=== PATIENT | female | born 1940 | race African-American/Black ===

== ENCOUNTER 2019-07-22 22:18 | Emergency (ER) | payer MEDICARE, OTHER ==
[2019-07-22] MEDS ORDERED: Ibuprofen 800 MG TAB ONE (23:11)
[2019-07-22] MEDS ORDERED: cloNIDine 0.1 MG TAB ONE (23:11)
== END 2019-07-22 23:55 | disposition home or self-care (01) ==
LOC: ERS 22:18
DX: M62.838 Other muscle spasm (principal); I10 Essential (primary) hypertension; E11.9 Type 2 diabetes mellitus without complications; F17.210 Nicotine dependence, cigarettes, uncomplicated
CPT/HCPCS: 99283

== ENCOUNTER 2021-11-16 09:39 | Inpatient (IN) | payer MEDICARE ==
[2021-11-16] MEDS ORDERED: Nitroglycerin 2% Ointment 1 INCH/1 GM Packet ONE (10:28)
[2021-11-16 10:33] LABS: #Eosinphils 0.1 thou/uL (0.0-0.7); #Monocytes 0.4 thou/uL (0.11-0.59); #Neutrophils 2.4 thou/uL (1.40-6.50); %Basophils 0.8 % (0.0-1.0); %Eosinophils 1.3 % (0.0-10.0); %Lymphocytes 40.9 % (21.0-51.0); %Monocytes 7.5 % (0.0-10.0); %Neutrophils 49.4 % (42.0-75.0); Hemoglobin 12.8 g/dL (12.0-16.0); Mean Corpuscular HGB CONC 32.2 g/dL (32.0-36.0); Mean Corpuscular Hemoglobin 30.1 pg (27.0-31.0); Mean Corpuscular Volume 93.5 fL (78.0-98.0); Platelet Count 155 thou/uL (130-400); RBC Distribution Width 12.1 % (11.5-14.5); Red Blood Cell (RBC) Count 4.23 mill/uL (4.20-5.40); White Blood Cell (WBC) Count 4.9 thou/uL (4.8-10.8)
[2021-11-16] MEDS ORDERED: Labetalol HCl 100 MG/20 ML VIAL ONE (10:38)
[2021-11-16 10:58] LABS: ALT (SGPT) Less than 7 U/L (8-55); AST (SGOT) 17 U/L (5-34); Albumin 4.2 g/dL (3.4-4.8); Alkaline Phosphatase 111 U/L (40-110); Anion Gap 12 mmol/L (10-20); BUN (Urea Nitrogen) 9 mg/dL (9.8-20.1); Bilirubin, Total 0.5 mg/dL (0.2-1.2); Calc. Creatinine Clearance 0 mL/min (70-130); Calcium 9.9 mg/dL (7.8-10.44); Carbon Dioxide 31 mmol/L (23-31); Chloride 102 mmol/L (98-107); Estimated GFR 64; Globulin 3.6 g/dL (2.4-3.5); Glucose 95 mg/dL (83-110); Potassium 3.6 mmol/L (3.5-5.1); Protein, Total 7.8 g/dL (5.8-8.1); Sodium 141 mmol/L (136-145)
[2021-11-16] MEDS ORDERED: niCARdipine 25 MG/10 ML VIAL ONE ×3 (11:29→19:44)
[2021-11-16] MEDS ORDERED: Aspirin Chewable 81 MG TAB ONE (11:34)
[2021-11-16 12:24] LABS: Bilirubin Negative (Negative); Blood, Urine Negative (Negative); Clarity Clear (Clear); Glucose, Urine (Dipstick) Normal (Negative); Ketone, Urine Negative (Negative); Leukocyte Negative Leu/uL (Negative); Nitrite Negative (Negative); Protein, Urine (Dipstick) Negative (Neg-Trace); Specific Gravity, Urine 1.006 (1.002-1.036); Urobilinogen Normal mg/dL (Less than 2)
[2021-11-16] MEDS ORDERED: Ondansetron ODT 4 MG TAB PO PRN (13:52)
[2021-11-16] MEDS ORDERED: Dextrose 5% in Water 1,000 ML IV PRN (13:58)
[2021-11-16] MEDS ORDERED: Dextrose 50% Abboject 50 ML SYRINGE SLOW IVP PRN (13:58)
[2021-11-16] MEDS ORDERED: HumaLOG 300 UNITS/3 ML VIAL SC PRN (13:58)
[2021-11-16] MEDS ORDERED: CCU Insulin Drip FS ONE (13:58)
[2021-11-16 14:09] LABS: Troponin I 0.018 ng/mL (< 0.028)
[2021-11-16] MEDS ORDERED: hydrALAZINE 25 MG TAB PO SCH (14:15)
[2021-11-16] MEDS ORDERED: NIFEdipine XL 60 MG TAB PO SCH (14:15)
[2021-11-16 14:22] LABS: Cardiac Risk 3.4 (Less than 4.5); Hemoglobin A1c 5.4 % (4.0-6.0)
[2021-11-16] MEDS ORDERED: hydrALAZINE 25 MG TAB ONE ×2 (14:22→17:10)
[2021-11-16] MEDS: hydrALAZINE 25 MG TAB PO SCH ×2 (17:14→22:15)
[2021-11-16 17:23] LABS: Troponin I 0.015 ng/mL (< 0.028)
[2021-11-16] MEDS: NIFEdipine XL 60 MG TAB PO SCH (22:15)
[2021-11-16] MEDS: Atorvastatin Calcium 40 MG TAB PO SCH (22:15)
[2021-11-16] MEDS: Famotidine 20 MG TAB PO SCH (22:15)
[2021-11-17] MEDS ORDERED: niCARdipine 25 MG in Sodium Chloride 0.9% 250 ML 250 ML IVPB SCH (02:15)
[2021-11-17 04:07] LABS: #Lymphocytes 1.3 thou/uL (1.20-3.40); #Monocytes 0.7 thou/uL (0.11-0.59); #Neutrophils 6.6 thou/uL (1.40-6.50); %Basophils 0.2 % (0.0-1.0); %Eosinophils 0.5 % (0.0-10.0); %Lymphocytes 15.4 % (21.0-51.0); %Monocytes 8.3 % (0.0-10.0); %Neutrophils 75.7 % (42.0-75.0); Hemoglobin 11.7 g/dL (12.0-16.0); Mean Corpuscular HGB CONC 32.6 g/dL (32.0-36.0); Mean Corpuscular Hemoglobin 30.5 pg (27.0-31.0); Mean Corpuscular Volume 93.6 fL (78.0-98.0); Mean Platelet Volume 8.9 fL (7.4-10.4); Platelet Count 154 thou/uL (130-400); RBC Distribution Width 12.3 % (11.5-14.5); Red Blood Cell (RBC) Count 3.83 mill/uL (4.20-5.40); White Blood Cell (WBC) Count 8.7 thou/uL (4.8-10.8)
[2021-11-17 04:23] LABS: ALT (SGPT) Less than 7 U/L (8-55); AST (SGOT) 16 U/L (5-34); Albumin 3.6 g/dL (3.4-4.8); Alkaline Phosphatase 91 U/L (40-110); Anion Gap 15 mmol/L (10-20); BUN (Urea Nitrogen) 11 mg/dL (9.8-20.1); Bilirubin, Total 0.4 mg/dL (0.2-1.2); Calc. Creatinine Clearance 51 mL/min (70-130); Calcium 9.3 mg/dL (7.8-10.44); Carbon Dioxide 25 mmol/L (23-31); Chloride 105 mmol/L (98-107); Estimated GFR 77; Globulin 3.3 g/dL (2.4-3.5); Glucose 136 mg/dL (83-110); Potassium 3.3 mmol/L (3.5-5.1); Protein, Total 6.9 g/dL (5.8-8.1); Sodium 142 mmol/L (136-145)
[2021-11-17] MEDS ORDERED: Insulin Glargine 30 UNITS/0.3 ML VIAL SC SCH (09:00)
[2021-11-17] MEDS: Aspirin Chewable 81 MG TAB PO SCH (09:07)
[2021-11-17] MEDS: Famotidine 20 MG TAB PO SCH ×2 (09:07→20:22)
[2021-11-17] MEDS: hydrALAZINE 25 MG TAB PO SCH ×4 (09:08→20:23)
[2021-11-17] MEDS: NIFEdipine XL 60 MG TAB PO SCH ×2 (09:08→20:23)
[2021-11-17] MEDS ORDERED: Electrolyte Replacement Protocol 1 EACH FS ONE (10:23)
[2021-11-17] MEDS ORDERED: Electrolyte Replacement Protocol FS PRN (10:45)
[2021-11-17] MEDS ORDERED: Potassium Chloride 20 MEQ TAB PO SCH (10:45)
[2021-11-17 11:08] LABS: Magnesium 1.7 mg/dL (1.6-2.6)
[2021-11-17] MEDS ORDERED: Magnesium 2 GM/50 ML(in water) 2 GM in Premix Bag 1 BAG IVPB SCH (14:00)
[2021-11-17] MEDS: Atorvastatin Calcium 40 MG TAB PO SCH (20:22)
[2021-11-18] MEDS ORDERED: OLANZapine 10 MG VIAL IM SCH (04:00)
[2021-11-18] MEDS ORDERED: Sterile Water 20 ML VIAL FS SCH (04:00)
[2021-11-18 05:22] LABS: #Eosinphils 0.1 thou/uL (0.0-0.7); #Lymphocytes 1.3 thou/uL (1.20-3.40); #Monocytes 0.8 thou/uL (0.11-0.59); #Neutrophils 5.3 thou/uL (1.40-6.50); %Lymphocytes 16.8 % (21.0-51.0); %Monocytes 10.9 % (0.0-10.0); %Neutrophils 71.2 % (42.0-75.0); Hemoglobin 11.1 g/dL (12.0-16.0); Mean Corpuscular HGB CONC 31.8 g/dL (32.0-36.0); Mean Corpuscular Hemoglobin 30.3 pg (27.0-31.0); Mean Corpuscular Volume 95.1 fL (78.0-98.0); Mean Platelet Volume 8.9 fL (7.4-10.4); Platelet Count 158 thou/uL (130-400); RBC Distribution Width 12.5 % (11.5-14.5); Red Blood Cell (RBC) Count 3.67 mill/uL (4.20-5.40); White Blood Cell (WBC) Count 7.5 thou/uL (4.8-10.8)
[2021-11-18 05:38] LABS: ALT (SGPT) Less than 7 U/L (8-55); AST (SGOT) 16 U/L (5-34); Albumin 3.4 g/dL (3.4-4.8); Alkaline Phosphatase 88 U/L (40-110); Anion Gap 13 mmol/L (10-20); BUN (Urea Nitrogen) 13 mg/dL (9.8-20.1); Bilirubin, Total 0.3 mg/dL (0.2-1.2); Calc. Creatinine Clearance 42 mL/min (70-130); Calcium 9.1 mg/dL (7.8-10.44); Carbon Dioxide 27 mmol/L (23-31); Chloride 104 mmol/L (98-107); Estimated GFR 58; Globulin 3.2 g/dL (2.4-3.5); Glucose 125 mg/dL (83-110); Potassium 3.9 mmol/L (3.5-5.1); Protein, Total 6.6 g/dL (5.8-8.1); Sodium 140 mmol/L (136-145)
[2021-11-18] MEDS: Aspirin Chewable 81 MG TAB PO SCH (09:30)
[2021-11-18] MEDS: hydrALAZINE 25 MG TAB PO SCH ×4 (09:30→20:28)
[2021-11-18] MEDS: NIFEdipine XL 60 MG TAB PO SCH (09:31)
[2021-11-18] MEDS ORDERED: Iopamidol-370 76% 500 ML 1 ML ONE (14:25)
[2021-11-18] MEDS: Atorvastatin Calcium 40 MG TAB PO SCH (20:27)
[2021-11-18] MEDS: Famotidine 20 MG TAB PO SCH (20:28)
[2021-11-19 05:21] LABS: #Eosinphils 0.1 thou/uL (0.0-0.7); #Lymphocytes 2.2 thou/uL (1.20-3.40); #Monocytes 0.6 thou/uL (0.11-0.59); #Neutrophils 3.4 thou/uL (1.40-6.50); %Basophils 0.1 % (0.0-1.0); %Lymphocytes 35.6 % (21.0-51.0); %Monocytes 8.7 % (0.0-10.0); %Neutrophils 54.6 % (42.0-75.0); Hemoglobin 11.5 g/dL (12.0-16.0); Mean Corpuscular HGB CONC 31.7 g/dL (32.0-36.0); Mean Corpuscular Hemoglobin 30.3 pg (27.0-31.0); Mean Corpuscular Volume 95.6 fL (78.0-98.0); Mean Platelet Volume 8.9 fL (7.4-10.4); Platelet Count 158 thou/uL (130-400); RBC Distribution Width 12.5 % (11.5-14.5); White Blood Cell (WBC) Count 6.3 thou/uL (4.8-10.8)
[2021-11-19 05:45] LABS: ALT (SGPT) Less than 7 U/L (8-55); AST (SGOT) 15 U/L (5-34); Albumin 3.4 g/dL (3.4-4.8); Alkaline Phosphatase 85 U/L (40-110); Anion Gap 13 mmol/L (10-20); BUN (Urea Nitrogen) 13 mg/dL (9.8-20.1); Bilirubin, Total 0.3 mg/dL (0.2-1.2); Calc. Creatinine Clearance 49 mL/min (70-130); Calcium 9.3 mg/dL (7.8-10.44); Carbon Dioxide 27 mmol/L (23-31); Chloride 104 mmol/L (98-107); Estimated GFR 69; Globulin 3.2 g/dL (2.4-3.5); Glucose 94 mg/dL (83-110); Potassium 3.8 mmol/L (3.5-5.1); Protein, Total 6.6 g/dL (5.8-8.1); Sodium 140 mmol/L (136-145)
[2021-11-19 08:56] LABS: Magnesium 1.9 mg/dL (1.6-2.6)
[2021-11-19] MEDS: NIFEdipine XL 60 MG TAB PO SCH (09:34)
[2021-11-19] MEDS: hydrALAZINE 25 MG TAB PO SCH ×4 (09:34→20:37)
[2021-11-19] MEDS: Aspirin Chewable 81 MG TAB PO SCH (09:34)
[2021-11-19] MEDS ORDERED: Magnesium 2 GM/50 ML(in water) 2 GM in Premix Bag 1 BAG IVPB SCH (11:00)
[2021-11-19] MEDS: Atorvastatin Calcium 40 MG TAB PO SCH (20:37)
[2021-11-19] MEDS: Famotidine 20 MG TAB PO SCH (20:37)
[2021-11-20 06:02] LABS: Magnesium 2.2 mg/dL (1.6-2.6)
[2021-11-20 08:55] VITALS: BMI 23.2
[2021-11-20] MEDS: Aspirin Chewable 81 MG TAB PO SCH (08:58)
[2021-11-20] MEDS: NIFEdipine XL 60 MG TAB PO SCH (08:58)
[2021-11-20] MEDS: hydrALAZINE 25 MG TAB PO SCH ×4 (08:59→21:00)
[2021-11-20] MEDS: Senokot S 8.6-50 MG TAB PO PRN (21:00)
[2021-11-20] MEDS: Famotidine 20 MG TAB PO SCH (21:00)
[2021-11-20] MEDS: Atorvastatin Calcium 40 MG TAB PO SCH (21:00)
[2021-11-21] MEDS: NIFEdipine XL 60 MG TAB PO SCH (09:20)
[2021-11-21] MEDS: Aspirin Chewable 81 MG TAB PO SCH (09:20)
[2021-11-21] MEDS: hydrALAZINE 25 MG TAB PO SCH ×4 (09:20→20:51)
[2021-11-21] MEDS: Famotidine 20 MG TAB PO SCH (20:50)
[2021-11-21] MEDS: Atorvastatin Calcium 40 MG TAB PO SCH (20:50)
[2021-11-22] MEDS: Aspirin Chewable 81 MG TAB PO SCH (08:22)
[2021-11-22] MEDS: NIFEdipine XL 60 MG TAB PO SCH (08:22)
[2021-11-22] MEDS: hydrALAZINE 25 MG TAB PO SCH ×4 (08:22→20:40)
[2021-11-22] MEDS: Acetaminophen 325 MG TAB PO PRN (20:39)
[2021-11-22] MEDS: Famotidine 20 MG TAB PO SCH (20:40)
[2021-11-22] MEDS: Atorvastatin Calcium 40 MG TAB PO SCH (20:40)
[2021-11-23] MEDS ORDERED: traMADol HCl 50 MG TAB PO SCH (06:30)
[2021-11-23] MEDS: Aspirin Chewable 81 MG TAB PO SCH (09:15)
[2021-11-23] MEDS: NIFEdipine XL 60 MG TAB PO SCH (09:15)
[2021-11-23] MEDS: hydrALAZINE 25 MG TAB PO SCH ×4 (09:15→20:40)
[2021-11-23] MEDS: Famotidine 20 MG TAB PO SCH (20:39)
[2021-11-23] MEDS: Atorvastatin Calcium 40 MG TAB PO SCH (20:39)
[2021-11-23] MEDS: Acetaminophen 325 MG TAB PO PRN (20:39)
[2021-11-24] MEDS: NIFEdipine XL 60 MG TAB PO SCH (08:29)
[2021-11-24] MEDS: hydrALAZINE 25 MG TAB PO SCH ×4 (08:29→20:58)
[2021-11-24] MEDS: Aspirin Chewable 81 MG TAB PO SCH (08:29)
[2021-11-24] MEDS: Atorvastatin Calcium 40 MG TAB PO SCH (20:58)
[2021-11-24] MEDS: Famotidine 20 MG TAB PO SCH (20:58)
[2021-11-25] MEDS: Aspirin Chewable 81 MG TAB PO SCH (09:41)
[2021-11-25] MEDS: hydrALAZINE 25 MG TAB PO SCH ×4 (09:42→21:08)
[2021-11-25] MEDS: Lisinopril 5 MG TAB PO SCH (09:42)
[2021-11-25] MEDS: NIFEdipine XL 60 MG TAB PO SCH (09:42)
[2021-11-25] MEDS: Famotidine 20 MG TAB PO SCH (21:08)
[2021-11-25] MEDS: Atorvastatin Calcium 40 MG TAB PO SCH (21:09)
[2021-11-26 05:58] LABS: Anion Gap 14 mmol/L (10-20); BUN (Urea Nitrogen) 21 mg/dL (9.8-20.1); Calc. Creatinine Clearance 43 mL/min (70-130); Calcium 9.9 mg/dL (7.8-10.44); Carbon Dioxide 28 mmol/L (23-31); Chloride 100 mmol/L (98-107); Estimated GFR 60; Glucose 111 mg/dL (83-110); Sodium 138 mmol/L (136-145)
[2021-11-26] MEDS: NIFEdipine XL 60 MG TAB PO SCH (09:33)
[2021-11-26] MEDS: Aspirin Chewable 81 MG TAB PO SCH (09:33)
[2021-11-26] MEDS: Acetaminophen 325 MG TAB PO PRN (09:33)
[2021-11-26] MEDS: hydrALAZINE 25 MG TAB PO SCH ×4 (09:33→21:56)
[2021-11-26] MEDS: Lisinopril 5 MG TAB PO SCH (09:33)
[2021-11-26] MEDS: traMADol HCl 50 MG TAB PO PRN ×2 (14:20→21:57)
[2021-11-26] MEDS: Senokot S 8.6-50 MG TAB PO PRN (14:28)
[2021-11-26] MEDS: Famotidine 20 MG TAB PO SCH (21:56)
[2021-11-26] MEDS: Atorvastatin Calcium 40 MG TAB PO SCH (21:57)
[2021-11-27 06:25] LABS: Anion Gap 15 mmol/L (10-20); BUN (Urea Nitrogen) 24 mg/dL (9.8-20.1); Calc. Creatinine Clearance 40 mL/min (70-130); Calcium 10.1 mg/dL (7.8-10.44); Carbon Dioxide 29 mmol/L (23-31); Chloride 98 mmol/L (98-107); Estimated GFR 55; Glucose 116 mg/dL (83-110); Magnesium 1.8 mg/dL (1.6-2.6); Potassium 3.8 mmol/L (3.5-5.1); Sodium 138 mmol/L (136-145)
[2021-11-27] MEDS ORDERED: Magnesium 2 GM/50 ML(in water) 2 GM in Premix Bag 1 BAG IVPB SCH (08:00)
[2021-11-27] MEDS: NIFEdipine XL 60 MG TAB PO SCH (10:16)
[2021-11-27] MEDS: Aspirin Chewable 81 MG TAB PO SCH (10:17)
[2021-11-27] MEDS: hydrALAZINE 25 MG TAB PO SCH ×4 (10:17→20:47)
[2021-11-27] MEDS: Lisinopril 5 MG TAB PO SCH ×2 (10:17→10:23)
[2021-11-27] MEDS: Lisinopril 10 MG TAB PO SCH ×2 (10:18→10:22)
[2021-11-27] MEDS: traMADol HCl 50 MG TAB PO PRN (15:47)
[2021-11-27] MEDS: Famotidine 20 MG TAB PO SCH (20:47)
[2021-11-27] MEDS: Atorvastatin Calcium 40 MG TAB PO SCH (20:48)
[2021-11-28 09:50] LABS: #Lymphocytes 1.2 thou/uL (1.20-3.40); #Monocytes 1.1 thou/uL (0.11-0.59); #Neutrophils 6.7 thou/uL (1.40-6.50); %Basophils 0.3 % (0.0-1.0); %Eosinophils 0.4 % (0.0-10.0); %Lymphocytes 12.9 % (21.0-51.0); %Neutrophils 74.4 % (42.0-75.0); Hemoglobin 11.4 g/dL (12.0-16.0); Mean Corpuscular HGB CONC 31.4 g/dL (32.0-36.0); Mean Corpuscular Hemoglobin 29.7 pg (27.0-31.0); Mean Corpuscular Volume 94.5 fL (78.0-98.0); Mean Platelet Volume 8.2 fL (7.4-10.4); Platelet Count 210 thou/uL (130-400); RBC Distribution Width 12.2 % (11.5-14.5); Red Blood Cell (RBC) Count 3.85 mill/uL (4.20-5.40); White Blood Cell (WBC) Count 9.1 thou/uL (4.8-10.8)
[2021-11-28 10:10] LABS: ALT (SGPT) 14 U/L (8-55); AST (SGOT) 19 U/L (5-34); Albumin 3.7 g/dL (3.4-4.8); Alkaline Phosphatase 99 U/L (40-110); Anion Gap 15 mmol/L (10-20); BUN (Urea Nitrogen) 17 mg/dL (9.8-20.1); Bilirubin, Total 0.6 mg/dL (0.2-1.2); Calc. Creatinine Clearance 43 mL/min (70-130); Calcium 10.3 mg/dL (7.8-10.44); Carbon Dioxide 29 mmol/L (23-31); Chloride 100 mmol/L (98-107); Estimated GFR 60; Glucose 103 mg/dL (83-110); Protein, Total 7.7 g/dL (5.8-8.1); Sodium 140 mmol/L (136-145)
[2021-11-28] MEDS ORDERED: hydrALAZINE 20 MG/ML VIAL SLOW IVP PRN (10:31)
[2021-11-28] MEDS: hydrALAZINE 25 MG TAB PO SCH ×5 (10:47→22:06)
[2021-11-28] MEDS: Aspirin Chewable 81 MG TAB PO SCH (10:59)
[2021-11-28] MEDS: Lisinopril 20 MG TAB PO SCH (10:59)
[2021-11-28] MEDS: Acetaminophen 325 MG TAB PO PRN (11:00)
[2021-11-28] MEDS: NIFEdipine XL 60 MG TAB PO SCH (11:00)
[2021-11-28] MEDS ORDERED: Iopamidol-370 76% 500 ML 1 ML ONE (11:36)
[2021-11-28] MEDS: Sodium Chloride 0.9% 1,000 ML IV SCH (15:34)
[2021-11-28 17:45] LABS: Bacteria/HPF None Seen HPF (None Seen); Bilirubin Negative (Negative); Blood, Urine Negative (Negative); Clarity Clear (Clear); Glucose, Urine (Dipstick) Normal (Negative); Ketone, Urine Negative (Negative); Leukocyte Negative Leu/uL (Negative); Nitrite Negative (Negative); Protein, Urine (Dipstick) Negative (Neg-Trace); RBC/HPF 0-3 HPF (0-3); Specific Gravity, Urine 1.046 (1.002-1.036); Squamous Epithelial None Seen HPF (0-3); Urobilinogen Normal mg/dL (Less than 2); WBC/HPF 0-3 HPF (0-3)
[2021-11-28 17:46] LABS: Urine Culture Reflex No No
[2021-11-28] MEDS ORDERED: Ondansetron PF 4 MG/2 ML Vial IVP PRN (21:00)
[2021-11-28] MEDS: Atorvastatin Calcium 40 MG TAB PO SCH (22:06)
[2021-11-28] MEDS: Famotidine 20 MG TAB PO SCH (22:06)
[2021-11-29] MEDS: hydrALAZINE 25 MG TAB PO SCH ×4 (11:43→21:05)
[2021-11-29] MEDS: Aspirin Chewable 81 MG TAB PO SCH (11:43)
[2021-11-29] MEDS: Lisinopril 20 MG TAB PO SCH (11:44)
[2021-11-29] MEDS: NIFEdipine XL 60 MG TAB PO SCH (11:45)
[2021-11-29] MEDS: Sodium Chloride 0.9% 1,000 ML IV SCH (11:58)
[2021-11-29] MEDS: Famotidine 20 MG TAB PO SCH (21:05)
[2021-11-29] MEDS: Atorvastatin Calcium 40 MG TAB PO SCH (21:05)
[2021-11-30] MEDS: Sodium Chloride 0.9% 1,000 ML IV SCH ×2 (01:08→16:37)
[2021-11-30] MEDS: NIFEdipine XL 60 MG TAB PO SCH (11:18)
[2021-11-30] MEDS: Lisinopril 20 MG TAB PO SCH (11:18)
[2021-11-30] MEDS: hydrALAZINE 25 MG TAB PO SCH ×2 (11:18→13:39)
[2021-11-30] MEDS: Aspirin Chewable 81 MG TAB PO SCH (11:18)
[2021-11-30 12:02] VITALS: TEMP 98.2
[2021-11-30 15:46] VITALS: BP 155/59
== END 2021-11-30 17:00 | DRG 64 ==
LOC: ERS 09:39 → ERHOLD 13:13 → CCU 20:27 → NEURO 11-17 10:06
PROVIDERS: ADMIT Family Medicine; ATTEND Family Medicine
DX: I63.81 Other cerebral infarction due to occlusion or stenosis of small artery (principal); G93.41 Metabolic encephalopathy; I16.1 Hypertensive emergency; F03.91 Unspecified dementia, unspecified severity, with behavioral disturbance; I67.4 Hypertensive encephalopathy; G81.91 Hemiplegia, unspecified affecting right dominant side; Z20.822 Contact with and (suspected) exposure to COVID-19; R29.703 NIHSS score 3; I10 Essential (primary) hypertension; F17.210 Nicotine dependence, cigarettes, uncomplicated; E78.00 Pure hypercholesterolemia, unspecified; M19.90 Unspecified osteoarthritis, unspecified site; R73.03 Prediabetes; R47.1 Dysarthria and anarthria; Z82.49 Family history of ischemic heart disease and other diseases of the circulatory system; Z91.83 Wandering in diseases classified elsewhere; Z90.710 Acquired absence of both cervix and uterus; Z83.3 Family history of diabetes mellitus; Z91.19 Patient's noncompliance with other medical treatment and regimen; Z91.14 Patient's other noncompliance with medication regimen
CPT/HCPCS: 36415; 36416; 70450; 70496; 70498; 70551; 71045; 74230; 80048; 80053; 80061; 81001; 81003; 83036; 83735; 84484; 85025; 93005; 93306; 93880; 95816; 95819; 95957; 96365; 96366; 96375; J2405; J3475; J7050; Q9967; U0003; U0005

== ENCOUNTER 2021-12-07 13:03 | Outpatient (CLI) | payer MEDICARE | END 2021-12-07 13:04 | disposition home or self-care (01) | LOC: RAD 13:03 | PROVIDERS: ATTEND Physical Medicine & Rehabilitation | DX: M25.551 Pain in right hip (principal); M16.11 Unilateral primary osteoarthritis, right hip ==

== ENCOUNTER 2021-12-14 14:05 | Outpatient (CLI) | payer SELFPAY | END 2021-12-14 14:06 | disposition home or self-care (01) | LOC: CT 14:05 | PROVIDERS: ATTEND Internal Medicine | DX: R29.810 Facial weakness (principal); I63.9 Cerebral infarction, unspecified | CPT/HCPCS: 70450 ==

== ENCOUNTER 2022-01-20 01:08 | Emergency (ER) | payer MEDICARE | END 2022-01-20 03:13 | LOC: ERS 01:08 | DX: S00.83XA Contusion of other part of head, initial encounter (principal); I10 Essential (primary) hypertension; E11.9 Type 2 diabetes mellitus without complications; F17.210 Nicotine dependence, cigarettes, uncomplicated; W01.198A Fall on same level from slipping, tripping and stumbling with subsequent striking against other object, initial encounter; Y93.01 Activity, walking, marching and hiking; Y92.129 Unspecified place in nursing home as the place of occurrence of the external cause; Z79.82 Long term (current) use of aspirin; Z79.899 Other long term (current) drug therapy | CPT/HCPCS: 70450; 72125 ==

== ENCOUNTER 2022-05-01 17:49 | Emergency (ER) | payer MEDICARE ==
[2022-05-01 19:09] LABS: #Eosinphils 0.2 thou/uL (0.0-0.7); #Monocytes 0.6 thou/uL (0.11-0.59); #Neutrophils 3.3 thou/uL (1.40-6.50); %Basophils 0.1 % (0.0-1.0); %Eosinophils 2.6 % (0.0-10.0); %Lymphocytes 32.6 % (21.0-51.0); %Monocytes 10.5 % (0.0-10.0); %Neutrophils 54.3 % (42.0-75.0); Hemoglobin 8.9 g/dL (12.0-16.0); Mean Corpuscular HGB CONC 31.8 g/dL (32.0-36.0); Mean Corpuscular Hemoglobin 28.9 pg (27.0-31.0); Mean Corpuscular Volume 90.9 fl (78.0-98.0); Platelet Count 229 10x3/uL (130-400); RBC Distribution Width 16.9 % (11.5-14.5); Red Blood Cell (RBC) Count 3.09 mill/uL (4.20-5.40)
[2022-05-01 19:24] LABS: ALT (SGPT) 15 U/L (8-55); AST (SGOT) 28 U/L (5-34); Albumin 3.5 g/dL (3.4-4.8); Alkaline Phosphatase 110 U/L (40-110); Anion Gap 15 mmol/L (10-20); BUN (Urea Nitrogen) 10 mg/dL (9.8-20.1); Bilirubin, Total 0.3 mg/dL (0.2-1.2); Calc. Creatinine Clearance 0 mL/min (70-130); Calcium 9.3 mg/dL (7.8-10.44); Carbon Dioxide 28 mmol/L (23-31); Chloride 101 mmol/L (98-107); Estimated GFR 76; Globulin 3.8 g/dL (2.4-3.5); Glucose 102 mg/dL (83-110); Potassium 3.4 mmol/L (3.5-5.1); Protein, Total 7.3 g/dL (5.8-8.1); Sodium 141 mmol/L (136-145)
== END 2022-05-01 21:08 | disposition left against medical advice (07) ==
LOC: ERS 17:49
DX: Z53.21 Procedure and treatment not carried out due to patient leaving prior to being seen by health care provider (principal)
CPT/HCPCS: 36415; 80053; 85025

== ENCOUNTER 2022-05-02 10:26 | Outpatient (CLI) | payer MEDICARE | END 2022-05-02 10:27 | disposition home or self-care (01) | LOC: BICRAD 10:26 | PROVIDERS: ATTEND Family Medicine | DX: L89.223 Pressure ulcer of left hip, stage 3 (principal) | CPT/HCPCS: 87070; 87205 ==

== ENCOUNTER 2024-12-30 15:25 | Inpatient (IN) | payer MEDICARE ==
[~2024-12-30 15:25] MED LIST: Iopamidol-370 76% 500 ML MDV (1 ML CHARGE) ONE
[2024-12-30 17:01] LABS: #Basophils 0.03 10x3/uL (0.0-0.2); #Eosinophils 0.06 10x3/uL (0.0-0.7); #Monocytes 0.94 10x3/uL (0.11-0.59); #Neutrophils 5.91 10x3/uL (1.40-6.50); %Basophils 0.3 % (0.0-1.0); %Eosinophils 0.6 % (0.0-10.0); %Lymphocytes 24.6 % (21.0-51.0); %Monocytes 10.2 % (0.0-10.0); %Neutrophils 63.9 % (42.0-75.0); Hematocrit 33.6 % (36.0-47.0); Hemoglobin 10.4 g/dL (12.0-16.0); Mean Corpuscular Hemoglobin 27.7 pg (27.0-31.0); Mean Corpuscular Volume 89.6 fL (78.0-98.0); Platelet Count 191 10x3/uL (130-400); Red Blood Cell (RBC) Count 3.75 mill/uL (4.20-5.40); White Blood Cell (WBC) Count 9.26 10x3/uL (4.8-10.8)
[2024-12-30 17:20] LABS: ALT (SGPT) Less than 7 U/L (Less than 34); AST (SGOT) 19 U/L (11-34); Albumin 2.9 g/dL (3.1-4.5); Alkaline Phosphatase 96 U/L (40-110); Anion Gap 14 mmol/L (10-20); BUN (Urea Nitrogen) 13 mg/dL (9.8-20.1); Bilirubin, Total 0.3 mg/dL (0.3-1.2); Calc. Creatinine Clearance 0 mL/min (70-130); Calcium 9.1 mg/dL (7.8-10.44); Carbon Dioxide 26 mmol/L (23-31); Chloride 106 mmol/L (98-107); Globulin 3.7 g/dL (2.4-3.5); Glucose 139 mg/dL (83-110); Potassium 4.1 mmol/L (3.5-5.1); Sodium 142 mmol/L (136-145)
[2024-12-30] MEDS ORDERED: hydrALAZINE 20 MG/ML VIAL ONE (18:31)
[2024-12-30] MEDS ORDERED: Aspirin Chewable 81 MG TAB ONE (20:26)
[2024-12-30] MEDS ORDERED: Lisinopril 20 MG TAB ONE (20:26)
[2024-12-30] MEDS: NIFEdipine XL 60 MG ER.TAB PO SCH (20:57)
[2024-12-30] MEDS ORDERED: Acetaminophen 325 MG TAB PO PRN ×2 (21:15→23:13)
[2024-12-30] MEDS ORDERED: Ondansetron PF 4 MG/2 ML Vial IVP PRN ×2 (21:15→23:13)
[2024-12-30] MEDS ORDERED: niCARdipine 25 MG/10 ML SDV ONE (21:58)
[2024-12-30] MEDS ORDERED: Calcium Carbonate 500 MG ChewTAB PO PRN (23:13)
[2024-12-30] MEDS ORDERED: niCARdipine 25 MG in Sodium Chloride 0.9% 250 ML 250 ML IVPB SCH (23:30)
[2024-12-31 02:40] VITALS: BMI 24.5
[2024-12-31 05:26] LABS: #Basophils 0.03 10x3/uL (0.0-0.2); #Eosinophils 0.05 10x3/uL (0.0-0.7); #Monocytes 1.14 10x3/uL (0.11-0.59); #Neutrophils 7.84 10x3/uL (1.40-6.50); %Basophils 0.3 % (0.0-1.0); %Eosinophils 0.5 % (0.0-10.0); %Lymphocytes 17.3 % (21.0-51.0); %Monocytes 10.4 % (0.0-10.0); %Neutrophils 71.1 % (42.0-75.0); Hematocrit 37.4 % (36.0-47.0); Hemoglobin 11.5 g/dL (12.0-16.0); Mean Corpuscular Hemoglobin 27.3 pg (27.0-31.0); Mean Corpuscular Volume 88.8 fL (78.0-98.0); Platelet Count 198 10x3/uL (130-400); Red Blood Cell (RBC) Count 4.21 mill/uL (4.20-5.40); White Blood Cell (WBC) Count 11.01 10x3/uL (4.8-10.8)
[2024-12-31 05:48] LABS: ALT (SGPT) Less than 7 U/L (Less than 34); AST (SGOT) 18 U/L (11-34); Albumin 3.1 g/dL (3.1-4.5); Alkaline Phosphatase 104 U/L (40-110); Anion Gap 13 mmol/L (10-20); BUN (Urea Nitrogen) 13 mg/dL (9.8-20.1); Bilirubin, Total 0.3 mg/dL (0.3-1.2); Calc. Creatinine Clearance 47 mL/min (70-130); Calcium 10.0 mg/dL (7.8-10.44); Carbon Dioxide 27 mmol/L (23-31); Chloride 104 mmol/L (98-107); Globulin 4.5 g/dL (2.4-3.5); Glucose 165 mg/dL (83-110); Potassium 3.6 mmol/L (3.5-5.1); Sodium 140 mmol/L (136-145)
[2024-12-31] MEDS: Aspirin 81 mg Enteric Coated Tablet PO SCH (08:57)
[2024-12-31] MEDS: Enoxaparin 40 MG (0.4 mL) SYRINGE SC SCH (08:57)
[2024-12-31] MEDS: Lisinopril 20 MG TAB PO SCH (09:00)
[2024-12-31] MEDS: NIFEdipine XL 60 MG ER.TAB PO SCH (09:00)
[2024-12-31] MEDS: Mupirocin 1 GM TUBE NASAL DECOLONIZATION NASAL SCH (09:02)
[2024-12-31 15:07] VITALS: BMI 24.5
[2024-12-31] MEDS: Famotidine 20 MG TAB PO SCH (20:52)
[2025-01-01 08:13] LABS: #Basophils 0.04 10x3/uL (0.0-0.2); #Eosinophils 0.08 10x3/uL (0.0-0.7); #Monocytes 0.86 10x3/uL (0.11-0.59); #Neutrophils 7.29 10x3/uL (1.40-6.50); %Basophils 0.4 % (0.0-1.0); %Eosinophils 0.8 % (0.0-10.0); %Lymphocytes 20.2 % (21.0-51.0); %Monocytes 8.2 % (0.0-10.0); %Neutrophils 69.8 % (42.0-75.0); Hematocrit 38.0 % (36.0-47.0); Hemoglobin 11.8 g/dL (12.0-16.0); Mean Corpuscular Hemoglobin 27.4 pg (27.0-31.0); Mean Corpuscular Volume 88.2 fL (78.0-98.0); Platelet Count 227 10x3/uL (130-400); Red Blood Cell (RBC) Count 4.31 mill/uL (4.20-5.40); White Blood Cell (WBC) Count 10.44 10x3/uL (4.8-10.8)
[2025-01-01 08:26] LABS: ALT (SGPT) Less than 7 U/L (Less than 34); AST (SGOT) 25 U/L (11-34); Albumin 3.3 g/dL (3.1-4.5); Alkaline Phosphatase 112 U/L (40-110); Anion Gap 14 mmol/L (10-20); BUN (Urea Nitrogen) 15 mg/dL (9.8-20.1); Bilirubin, Total 0.4 mg/dL (0.3-1.2); Calc. Creatinine Clearance 47 mL/min (70-130); Calcium 10.3 mg/dL (7.8-10.44); Carbon Dioxide 29 mmol/L (23-31); Chloride 100 mmol/L (98-107); Globulin 4.9 g/dL (2.4-3.5); Glucose 129 mg/dL (83-110); Magnesium 1.8 mg/dL (1.6-2.6); Potassium 3.2 mmol/L (3.5-5.1); Sodium 140 mmol/L (136-145)
[2025-01-01] MEDS: Aspirin 81 mg Enteric Coated Tablet PO SCH (09:14)
[2025-01-02 06:21] LABS: #Basophils 0.03 10x3/uL (0.0-0.2); #Eosinophils 0.08 10x3/uL (0.0-0.7); #Monocytes 0.59 10x3/uL (0.11-0.59); #Neutrophils 5.16 10x3/uL (1.40-6.50); %Basophils 0.4 % (0.0-1.0); %Eosinophils 1.1 % (0.0-10.0); %Lymphocytes 19.9 % (21.0-51.0); %Monocytes 8.0 % (0.0-10.0); %Neutrophils 70.1 % (42.0-75.0); Hematocrit 36.7 % (36.0-47.0); Hemoglobin 11.4 g/dL (12.0-16.0); Mean Corpuscular Hemoglobin 27.3 pg (27.0-31.0); Mean Corpuscular Volume 87.8 fL (78.0-98.0); Platelet Count 221 10x3/uL (130-400); Red Blood Cell (RBC) Count 4.18 mill/uL (4.20-5.40); White Blood Cell (WBC) Count 7.37 10x3/uL (4.8-10.8)
[2025-01-02 06:39] LABS: ALT (SGPT) Less than 7 U/L (Less than 34); AST (SGOT) 17 U/L (11-34); Albumin 3.0 g/dL (3.1-4.5); Alkaline Phosphatase 96 U/L (40-110); Anion Gap 16 mmol/L (10-20); BUN (Urea Nitrogen) 19 mg/dL (9.8-20.1); Bilirubin, Total 0.3 mg/dL (0.3-1.2); Calc. Creatinine Clearance 36 mL/min (70-130); Calcium 9.5 mg/dL (7.8-10.44); Carbon Dioxide 27 mmol/L (23-31); Chloride 100 mmol/L (98-107); Globulin 3.8 g/dL (2.4-3.5); Glucose 123 mg/dL (83-110); Magnesium 1.9 mg/dL (1.6-2.6); Potassium 3.9 mmol/L (3.5-5.1); Sodium 139 mmol/L (136-145)
[2025-01-03 05:52] LABS: #Basophils 0.03 10x3/uL (0.0-0.2); #Eosinophils 0.03 10x3/uL (0.0-0.7); #Monocytes 0.60 10x3/uL (0.11-0.59); #Neutrophils 4.58 10x3/uL (1.40-6.50); %Basophils 0.4 % (0.0-1.0); %Eosinophils 0.4 % (0.0-10.0); %Lymphocytes 22.2 % (21.0-51.0); %Monocytes 8.8 % (0.0-10.0); %Neutrophils 67.6 % (42.0-75.0); Hematocrit 36.5 % (36.0-47.0); Hemoglobin 11.2 g/dL (12.0-16.0); Mean Corpuscular Hemoglobin 27.1 pg (27.0-31.0); Mean Corpuscular Volume 88.4 fL (78.0-98.0); Platelet Count 235 10x3/uL (130-400); Red Blood Cell (RBC) Count 4.13 mill/uL (4.20-5.40); White Blood Cell (WBC) Count 6.79 10x3/uL (4.8-10.8)
[2025-01-03 06:09] LABS: Anion Gap 15 mmol/L (10-20); BUN (Urea Nitrogen) 29 mg/dL (9.8-20.1); Calc. Creatinine Clearance 28 mL/min (70-130); Calcium 9.6 mg/dL (7.8-10.44); Carbon Dioxide 25 mmol/L (23-31); Chloride 104 mmol/L (98-107); Glucose 97 mg/dL (83-110); Potassium 3.8 mmol/L (3.5-5.1); Sodium 140 mmol/L (136-145)
[2025-01-03] MEDS: Enoxaparin 30 MG (0.3 mL) SYRINGE SC SCH (08:29)
[2025-01-04] MEDS: hydrALAZINE 20 MG/ML VIAL SLOW IVP PRN (01:21)
[2025-01-04 06:44] LABS: #Basophils Less than 0.03 10x3/uL (0.0-0.2); #Eosinophils 0.04 10x3/uL (0.0-0.7); #Monocytes 0.96 10x3/uL (0.11-0.59); #Neutrophils 7.72 10x3/uL (1.40-6.50); %Basophils 0.2 % (0.0-1.0); %Eosinophils 0.4 % (0.0-10.0); %Lymphocytes 17.0 % (21.0-51.0); %Monocytes 9.1 % (0.0-10.0); %Neutrophils 72.8 % (42.0-75.0); Hematocrit 33.4 % (36.0-47.0); Hemoglobin 10.2 g/dL (12.0-16.0); Mean Corpuscular Hemoglobin 27.3 pg (27.0-31.0); Mean Corpuscular Volume 89.3 fL (78.0-98.0); Platelet Count 206 10x3/uL (130-400); Red Blood Cell (RBC) Count 3.74 mill/uL (4.20-5.40); White Blood Cell (WBC) Count 10.59 10x3/uL (4.8-10.8)
[2025-01-04 07:38] LABS: Anion Gap 14 mmol/L (10-20); BUN (Urea Nitrogen) 24 mg/dL (9.8-20.1); Calc. Creatinine Clearance 46 mL/min (70-130); Calcium 9.0 mg/dL (7.8-10.44); Carbon Dioxide 22 mmol/L (23-31); Chloride 107 mmol/L (98-107); Glucose 133 mg/dL (83-110); Potassium 3.5 mmol/L (3.5-5.1); Sodium 139 mmol/L (136-145)
[2025-01-05 06:19] LABS: Anion Gap 15 mmol/L (10-20); BUN (Urea Nitrogen) 14 mg/dL (9.8-20.1); Calc. Creatinine Clearance 51 mL/min (70-130); Calcium 9.6 mg/dL (7.8-10.44); Carbon Dioxide 26 mmol/L (23-31); Chloride 103 mmol/L (98-107); Glucose 110 mg/dL (83-110); Potassium 3.8 mmol/L (3.5-5.1); Sodium 140 mmol/L (136-145)
[2025-01-06] MEDS: Enoxaparin 40 MG (0.4 mL) SYRINGE SC SCH (08:50)
[2025-01-06 09:07] VITALS: TEMP 97.6
[2025-01-06] MEDS: NIFEdipine XL 30 MG ER.TAB PO SCH (11:11)
[2025-01-06 14:47] VITALS: BP 147/73
[2025-01-07] MEDS ORDERED: NIFEdipine XL 90 MG ER.TAB PO SCH (09:00)
== END 2025-01-06 16:33 | DRG 305 ==
LOC: ERS 15:25 → ERHOLD 21:57 → CCU 12-31 00:29 → T4-A 12-31 13:16
PROVIDERS: ADMIT Student in an Organized Health Care Education/Training Program; ATTEND Internal Medicine
DX: I16.1 Hypertensive emergency (principal); I67.4 Hypertensive encephalopathy; N17.9 Acute kidney failure, unspecified; Z66 Do not resuscitate; I12.9 Hypertensive chronic kidney disease with stage 1 through stage 4 chronic kidney disease, or unspecified chronic kidney disease; F03.90 Unspecified dementia, unspecified severity, without behavioral disturbance, psychotic disturbance, mood disturbance, and anxiety; N18.2 Chronic kidney disease, stage 2 (mild); E11.22 Type 2 diabetes mellitus with diabetic chronic kidney disease; D64.9 Anemia, unspecified; E78.5 Hyperlipidemia, unspecified; M85.89 Other specified disorders of bone density and structure, multiple sites; Z87.891 Personal history of nicotine dependence; Z79.899 Other long term (current) drug therapy; Z79.82 Long term (current) use of aspirin
CPT/HCPCS: 36415; 36416; 70496; 70498; 71045; 71250; 72170; 80048; 80053; 83735; 83880; 84484; 85025; 93005; 96374; 96375; 97139; J0360; J1650; J7030; Q0162; Q9967

== ENCOUNTER 2025-03-29 13:19 | Emergency (ER) | payer MEDICARE ==
[2025-03-29] MEDS ORDERED: hydrALAZINE 20 MG/ML VIAL ONE (17:02)
== END 2025-03-29 17:38 | disposition home or self-care (01) ==
LOC: ERS 13:19
DX: L89.152 Pressure ulcer of sacral region, stage 2 (principal); G89.29 Other chronic pain; I10 Essential (primary) hypertension; Z86.73 Personal history of transient ischemic attack (TIA), and cerebral infarction without residual deficits; Z87.891 Personal history of nicotine dependence
CPT/HCPCS: 96374; 96375; 99283; J0360